=== PATIENT | female | born 1995 | race Asian ===

== ENCOUNTER 2017-03-27 07:28 | Emergency (ER) | payer SELFPAY ==
[~2017-03-27] VITALS: Ht 167.6 cm; Wt 54.4 kg
[2017-03-27 07:40] VITALS: BP 124/74
[2017-03-27] MEDS ORDERED: TETANUS-DIPTH-ACEL PERTUSSIS 0.5ML SYRG IM ONE (09:45)
== END 2017-03-27 10:12 | disposition home or self-care (01) ==
LOC: ER 07:28
DX: S61.251A Open bite of left index finger without damage to nail, initial encounter (principal); S61.253A Open bite of left middle finger without damage to nail, initial encounter; S61.231A Puncture wound without foreign body of left index finger without damage to nail, initial encounter; S61.233A Puncture wound without foreign body of left middle finger without damage to nail, initial encounter; Z23 Encounter for immunization; W54.0XXA Bitten by dog, initial encounter; Y93.01 Activity, walking, marching and hiking; Y99.8 Other external cause status; Y92.488 Other paved roadways as the place of occurrence of the external cause
CPT/HCPCS: 90471; 90715

== ENCOUNTER 2017-06-01 17:03 | Emergency (ER) | payer OTHER ==
[~2017-06-01] VITALS: Ht 167.6 cm; Wt 54.7 kg
[2017-06-01 18:26] LABS: Urine Bilirubin Negative (Negative); Urine Blood 2+ /uL (Negative); Urine Color Yellow (Yellow); Urine Glucose Normal (Normal); Urine Ketone TRACE (Negative); Urine Mucus FEW (None Seen); Urine Nitrite Negative (Negative); Urine RBC 5 /hpf (0 - 4); Urine Squamous Epithelial Cell FEW /hpf (<5); Urine pH 6.5 (5.0-8.0)
[2017-06-01 20:41] VITALS: BP 110/65
== END 2017-06-01 20:52 | disposition home or self-care (01) ==
LOC: ER 17:03
DX: R11.2 Nausea with vomiting, unspecified (principal); R51 Headache; Z53.21 Procedure and treatment not carried out due to patient leaving prior to being seen by health care provider
CPT/HCPCS: 81001; 99281; J7030